=== PATIENT | male | born 1985 | race Caucasian/White ===

== ENCOUNTER 2024-12-12 12:18 | Emergency (ER) | payer OTHER, SELFPAY ==
[2024-12-12 12:27] VITALS: BP 134/86; PULSE 64; RESP 18; TEMP 36.3; O2SAT 100
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
--- OUTSIDE RECORDS SUMMARY | 2024-12-12 13:13 | XMS_ITS | Clinical Summary ---
Author Organization [facility] Address [address] [place] [address] Care Team Providers Care Beauty Specialist Name Role Phone Nadine Floyd MD Primary Care Provider [phone] Allergies Active Allergy Reactions Criticality Noted Date Comments Penicillin G Rash Medium 07/30/2021 Medications temazepam (RESTORIL) 15 mg capsule 07/09/2021 Active Active Problems Problem Noted Date Diagnosed Date Femoroacetabular impingement of left hip 022 Overview (10/28/2021): Added automatically from request for surgery [id number] Non-refractory epilepsy 11/18/2013 Overview (10/08/2016): EPILEP NOS W/O INTR EPIL Amblyopia 11/18/2013 Overview (10/08/2016): AMBLYOPIA NOS Acne 11/18/2013 Overview (10/09/2016): ACNE NEC Surgical History Surgery Date Site/Laterality Comments OTHER SURGICAL HISTORY strabismus: strabismus surgery Medical History Medical History Date Comments Hx Other Medical strabismus Obesity Asthma Seizures (HCC) Family History Relation Name Status Comments Father Mother Alive Social History Tobacco Use Types Packs/Day Years Used Date Smoking Tobacco: Never Smokeless Tobacco: Never Alcohol Use Standard Drinks/Week Comments Yes 0 (1 standard drink = 0.6 oz pur e alcohol) Sex and Gender Information Value Date Recorded Sex Assigned at Not on file Legal Sex Male 6:04 PM STATION USHER Gender Identity Not on file Sexual Orientation Not on file Obstetrics History Last Filed Vital Signs Vital Sign Reading Time Taken Comments Blood Pressure - - Pulse - - Temperature - - Respiratory Rate - - Oxygen Saturation - - Inhaled Oxygen Concentration - - Weight 92.8 kg (204 lb 9.6 oz) 07/30/2021 10:28 AM STATION USHER Height 167.6 cm (5' 6) 07/30/2021 10:28 AM STATION USHER Body Mass Index 33.02 07/30/2021 10:28 AM STATION USHER Plan of Treatment Health Maintenance Due Date Last Done Comments Depression Screening 1986 Hepatitis C Screening 1986 DTaP/Tdap/Td Vaccine (1 - Tdap) 1997 Varicella Vaccines (1 of 2 - 13+ 2-dose series) 01/01/2000 Hepatitis B Screening 2004 Regular Well Visit/Exam 18-64 2004 Covid-19 Vaccine ( - 2023-2 5 season) 2024 07/09/2021, 09/22/2020, 08/31/2020 Influenza Vaccine (Season Ended) 2025 HPV Vaccines Aged Out No longer eligi ble based on patient's age to complete this topic Pneumococcal vaccine <65 Aged Out No longer eligible based on patient's age to complete this topic Insurance [employer] CIGNA OPEN ACCESS CIGNA Care Teams Beauty Specialist Relationship Specialty Start Date End Date Nadine Floyd MD PCP - General Family Medicine 07/09/21
--- OUTSIDE RECORDS SUMMARY | 2024-12-12 13:13 | XMS_ITS | Continuity of Care Document ---
Author Organization [facility] Address [address] [place] [address] Phone Care Team Providers Care Radiological Engineer Name Role Phone Main WEB WORKERUte Unavailable Unavailable Allergies, Adverse Reactions, Alerts Substance Reaction Status Criticality Penicillins Active No Information Procedures Procedure Date Drugs unclassified injection Betamethasone acet&sod phosp DRAIN/INJECT JOINT/BURSA OFFICE/OUTPATIENT VISIT EST RADEX WRST COMPL MINIMUM 3 VIEWS 2023 OFFICE/OUTPATIENT VISIT NEW Advance Directives Directive Yes / No Effective Date File Name Resuscitation Not Answered N/A N/A Life Support Not Answered N/A N/A Intubation Not Answered N/A N/A Antibiotics Not Answered N/A N/A IV Fluid Support Not Answered N/A N/A Tube Feed Not Answered N/A N/A Other Directive N/A N/A WARNING:The information contained in this section is historical and is provided for information only and does not constitute a legal document or any assurance that the information is still accurate. Please verify the information with the yoon of the legal document before using it for clinical purposes. Encounters Encounter Description Practice Location Reason(s) For Visit Diagnoses Date Provider Providers Copied on Encounter OFFICE/OUTPAT IENT VISIT EST [facility] , [address], [place], [address], tel:[phone] [facility] Right wrist tendinitis Sep-2 [address], [place], [place], [id number] . tel: [phone] Referring Provider: Nadine Stephenson, [address] [place], [address] . tel:[phone] OFFICE/OUTPAT IENT VISIT NEW [facility] , [address], [place], [address], [place] [phone] [facility] Pain in right wristRight wrist tendinitisBody mass index [BMI] 31.0-31.9, adult Albert Saeed. [address], [place], [place], [id number] , [place]. tel: [phone] Referring Provider: Nadine Stephenson, [address] [place], [address] . tel:[phone] Family History Family Member Type Diagnosis Age At Onset Father Problem Alive and well Father Problem Hypertension Mother Problem Glioblastoma Payers Payer name Insurance type Covered libertarian ID elder jacinto(s) Marylou Open Access Plus E2 OT [id number] Social History Type Description Quantity Date Captured Comments Alcohol Use Details Caffeine Use Details Unknown Tobacco Use Status Current non-smoker Smoking Status Never smoker Sex Male Chief Complaint And Reason For Visit No Information Reason For Referral Reason For Referral No Information Plan Of Treatment Date Type Action Status Referral Ordered: RADEX WRST COMPL MINIMUM 3 VIEWS RT wrist ordered History Of Present Illness Encounter Date Complaint History Of Prese nt Illness No Information Functional Status Date Functional Assessmen t No Information Instructions Date Instruction Additional Infor mation Giving encouragement to exercise Related to Body mass index [BMI] 31.0-31.9, adult Assessments Type Assessment Date assessment Right wrist tendinitis Patient Care Teams Name Effective Dates (start - stop) Status Members No Information
--- OUTSIDE RECORDS SUMMARY | 2024-12-12 13:13 | XMS_ITS | Clinical Summary ---
Author Organization [facility] Address [address] [place] [id number] Care Team Providers Care Card Doffer Name Role Phone Unavailable Primary Care Provider Unavailabl e Immunizations Immunization Administration Dates Next Due Covid-19, Mrna, Lnp-s, Pf, 30 Mcg/0.3 Ml Dose (P fizer) 07/09/2021 Social History Tobacco Use Types Packs/Day Years Used Date Smoking Tobacco: Never Assessed Sex and Gender Information Value Date Recorded Sex Assigned at Not on file Legal Sex Male 12:40 AM CDT Gender Identity Not on file Sexual Orientation Not on file Plan of Treatment Health Maintenance Due Date Last Done Comments Hepatitis C Virus (HCV) Screening 1986 TdaP Immunization 1986 Hepatitis B Immunization (1 of 3 - 19+ 3-dose series) 2005 Influenza Immunization (#1) 2024 SARS-COV-2 Immunization (2023- season) 2024 07/09/2021, 09/22/2020, 08/31/2020 Respiratory Syncytial Virus (RSV) Immunization (Adult) (1 - 1-dose 75+ series) 2061 Meningococcal Immunization (ACWY) Aged Out No longer eligible b ased on patient's age to complete this topic Pneumococcal Immunization Combined Aged Out No longer eligible b ased on patient's age to complete this topic Rotavirus Immunization Aged Out No lo nger eligible based on patient's age to complete this topic
--- OUTSIDE RECORDS SUMMARY | 2024-12-12 13:13 | XMS_ITS | Referral Summary ---
Author Organization [facility] Address [address] [place] [address] Care Team Providers Care Circuit Breaker Mechanic Name Role Phone Nadine Floyd MD Primary Care Provider [phone] Allergies Active Allergy Reactions Criticality Noted Date Comments Penicillin G Rash Medium 07/30/2021 Medications temazepam (RESTORIL) 15 mg capsule 07/09/2021 Active Active Problems Problem Noted Date Diagnosed Date Femoroacetabular impingement of left hip 022 Overview (10/28/2021): Added automatically from request for surgery [id number] Non-refractory epilepsy 11/18/2013 Overview (10/08/2016): EPILEP NOS W/O INTR EPIL Amblyopia 11/18/2013 Overview (10/08/2016): AMBLYOPIA NOS Acne 11/18/2013 Overview (10/09/2016): ACNE NEC Social History Tobacco Use Types Packs/Day Years Used Date Smoking Tobacco: Never Smokeless Tobacco: Never Alcohol Use Standard Drinks/Week Comments Yes 0 (1 standard drink = 0.6 oz pur e alcohol) Sex and Gender Information Value Date Recorded Sex Assigned at Not on file Legal Sex Male 6:04 PM MACHINE SIZER Gender Identity Not on file Sexual Orientation Not on file Last Filed Vital Signs Vital Sign Reading Time Taken Comments Blood Pressure - - Pulse - - Temperature - - Respiratory Rate - - Oxygen Saturation - - Inhaled Oxygen Concentration - - Weight 92.8 kg (204 lb 9.6 oz) 07/30/2021 10:28 AM MACHINE SIZER Height 167.6 cm (5' 6) 07/30/2021 10:28 AM MACHINE SIZER Body Mass Index 33.02 07/30/2021 10:28 AM MACHINE SIZER Plan of Treatment Not on file Insurance CIGNA CIGNA OPEN ACCESS CIGNA Care Teams Circuit Breaker Mechanic Relationship Specialty Start Date End Date Nadine Floyd MD PCP - General Family Medicine 07/09/21
--- OUTSIDE RECORDS SUMMARY | 2024-12-12 13:14 | XMS_ITS | Continuity of Care Document ---
Author Organization [facility] Address [address] [place] [address] Phone Care Team Providers Care Army Helicopter Pilot Name Role Phone Main NEWSPAPER EDITORUte Unavailable Unavailable Allergies, Adverse Reactions, Alerts Substance [...] OFFICE/OUTPAT IENT VISIT EST [facility] , [address], [place], [address], tel:[phone] [facility] Right wrist tendinitis Sep-2 [address], [place], [place], [id number] . tel: [phone] Referring Provider: Nadine Stephenson, [address] [place], [address] . tel:[phone] OFFICE/OUTPAT IENT VISIT NEW [facility] , [address], [place], [address], [place] [phone] [facility] Pain in right wristRight wrist tendinitisBody mass index [BMI] 31.0-31.9, adult Albert Saeed. [address], [place], [place], [id number] , [place]. tel: [phone] Referring Provider: Nadine Stephenson, [address] [place], [address] . tel:[phone] Family History Family Member Type Diagnosis Age At Onset Father Problem Alive and well Father Problem Hypertension Mother Problem Glioblastoma Payers Payer name Insurance type Covered constitution party ID elder jacinto(s) Marylou Open Access Plus E2 OT [id number] Social History Type Description Quantity Date Captured [...]
== END 2024-12-12 12:48 | disposition home or self-care (01) ==
PROVIDERS: PCP Family Medicine
DX: H60.93 Unspecified otitis externa, bilateral (principal); E78.5 Hyperlipidemia, unspecified; M41.9 Scoliosis, unspecified; F12.90 Cannabis use, unspecified, uncomplicated
CPT/HCPCS: 99213; G0463